=== PATIENT | female | born 1985 | race Caucasian/White ===

== ENCOUNTER 2016-07-18 20:20 | Emergency (ER) | payer OTHER ==
[2016-07-18] MEDS ORDERED: Sodium Chloride 0.9% 1000 ML 1,000 ML IV STA (20:54)
[2016-07-18] MEDS ORDERED: Sodium Chloride 0.9% 1000 ML 1,000 ML ONE (21:02)
[2016-07-18 21:07] LABS: BASOPHIL % 0.6 % (0.0-0.4); Eosinophil % 1.2 % (0.00-5.0); Granulocytes % 49.5 % (36.0-66.0); Lymphocytes % 36.3 % (24.0-44.0); Mean Cell Volume 92.3 fl (78-100); Mean Corpuscular Hemoglobin 31.4 pg (26-32); Mean Platelet Volume 9.1 fl (6-9.5); Monocytes % 12.4 % (0.0-12.0); Platelet Count 333 K/mm3 (150-450); Red Blood Count 4.42 M/mm3 (4.1-5.4); Red Cell Distribution Width 12.6 % (11.5-14.0); White Blood Count 4.9 K/mm3 (4.0-10.5)
--- NOTE | 2016-07-18 21:26 | ERPHSYRPT ---
- History of Present Illness Time Seen by Provider: 07/18/16 20:50 Source: patient Exam Limitations: no limitations Patient Subjective Stated Complaint: pt states she has been having shortness of breath and chest pain, worse with deep inhalation Triage Nursing Assessment: pt alert and oriented, answers questions approp. skin pink warm and dry. pt ambulatory with steady gait noted. resps nonlabored with lungs cta. pt reports increased pain with deep inhalation. Physician History: FOR THE PAST 4 DAYS PT HAS HAD A SORE THROAT AND RUNNY NOSE; SINCE YESTERDAY CHEST PAIN AND SHORTNESS OF AIR. Allergies/Adverse Reactions: No Known Drug Allergies Allergy (Verified 07/18/16 21:09) Hx Tetanus, Diphtheria Vaccination/Date Given: Yes Hx Influenza Vaccination/Date Given: No Hx Pneumococcal Vaccination/Date Given: No Immunizations Up to Date: Yes - Review of Systems Constitutional: No Fever Ears, Nose, & Throat: Nose Discharge, Throat Pain Respiratory: Dyspnea Cardiac: Chest Pain Endocrine: No Excessive Sweating All Other Systems: Reviewed and Negative - Past Medical History Pertinent Past Medical History: No Neurological History: No Pertinent History ENT History: No Pertinent History Cardiac History: No Pertinent History Respiratory History: No Pertinent History Endocrine Medical History: No Pertinent History Musculoskeletal History: No Pertinent History GI Medical History: No Pertinent History History: No Pertinent History Psycho-Social History: No Pertinent History Female Reproductive Disorders: No Pertinent History - Past Surgical History Past Surgical History: Yes Neuro Surgical History: No Pertinent History Cardiac: No Pertinent History Respiratory: No Pertinent History Gastrointestinal: Appendectomy, Cholecystectomy Genitourinary: No Pertinent History Musculoskeletal: No Pertinent History Female Surgical History: Tubal Ligation Other Surgical History: WEAK MUSCLE IN LEFT EYE THAT WAS REPAIRED - Social History Smoking Status: Never smoker Exposure to second hand smoke: Yes Drug Use: none Patient Lives Alone: Yes Significant Family History: no pertinent family hx - Female History Hx Last Menstrual Period: 07/04/16 Hx Now: No - Nursing Vital Signs Nursing Vital Signs: Initial Vital Signs Temperature 97.5 F Temperature Source Oral Pulse Rate 101 Respiratory Rate 16 Blood Pressure [Left Arm] 128/78 Pain Intensity 3 - Physical Exam General Appearance: alert Eye Exam: PERRL/EOMI, eyes nml inspection Ears, Nose, Throat Exam: TMs normal, moist mucous membranes, pharyngeal erythema Neck Exam: normal inspection Respiratory Exam: lungs clear Cardiovascular Exam: normal heart sounds Gastrointestinal/Abdomen Exam: soft, normal bowel sounds Back Exam: normal range of motion Extremity Exam: normal inspection, No pedal edema Neurologic Exam: alert, cooperative Skin Exam: warm, dry SpO2 Interpretation: normal SpO2: 98 Oxygen Delivery: Room Air - Course Nursing assessment & vital signs reviewed: Yes EKG Interpreted by Me: RATE (90), Sinus Rhythm, NORMAL AXIS, NORMAL INTERVALS Ordered Tests: Active Orders 24 hr Category Date Time Status EKG-ER Only STAT Care 07/18/16 20:54 Active IV Insertion STAT Care 07/18/16 20:54 Active Pulse Oximetry (ED) STAT Care 07/18/16 20:54 Active CHEST 2 VIEWS (PA AND LAT) Stat Exams 07/18/16 20:54 Taken AMYLASE Stat Lab 07/18/16 21:02 Completed CBC W DIFF Stat Lab 07/18/16 21:02 Completed CMP Stat Lab 07/18/16 21:02 Completed HCG QUALITATIVE,SERUM Stat Lab 07/18/16 21:02 Completed LIPASE Stat Lab 07/18/16 21:02 Completed MAGNESIUM Stat Lab 07/18/16 21:02 Completed TROPONIN Stat Lab 07/18/16 21:02 Completed Medication Summary Discontinued Medications Generic Name Dose Route Start Last Admin Trade Name Freq PRN Reason Stop Dose Admin Sodium Chloride 1,000 mls @ 999 mls/hr 07/18/16 20:54 07/18/16 21:03 Sodium Chloride 0.9% 1000 Ml IV 07/18/16 21:54 999 mls/hr .Q1H1M STA Administration Sodium Chloride Confirm 07/18/16 21:02 Sodium Chloride 0.9% 1000 Ml Administered 07/18/16 21:03 Dose 1,000 mls @ ud .ROUTE .STK-MED ONE Potassium Chloride 20 meq 07/18/16 22:55 Klor Con 10 Meq PO 07/18/16 22:56 STAT ONE Lab/Rad Data: Laboratory Result Diagrams 07/18/16 21:02 07/18/16 21:02 Laboratory Results 07/18/16 07/18/16 07/18/16 Range/Units 21:02 21:02 21:02 WBC (4.0-10.5) K/mm3 RBC (4.1-5.4) M/mm3 Hgb (12.0-16.0) gm/dl Hct (35-47) % MCV (78-100) fl MCH (26-32) pg MCHC (32-36) g/dl RDW (11.5-14.0) % Plt Count (150-450) K/mm3 MPV (6-9.5) fl Gran % (36.0-66.0) % Lymphocytes % (24.0-44.0) % Monocytes % (0.0-12.0) % Eosinophils % (0.00-5.0) % Basophils % (0.0-0.4) % Basophils # (0-0.4) Sodium 141 (136-145) mEq/L Potassium 3.3 L (3.5-5.1) mEq/L Chloride 103 (98-107) mEq/L Carbon Dioxide 25.4 (21-32) mEq/L Anion Gap 15.4 H (5-15) MEQ/L BUN 9 (9-20) mg/dL Creatinine 0.83 (0.55-1.30) mg/dl Estimated GFR > 60 ML/MIN Glucose 98 (70-110) MG/DL Calcium 9.0 (8.5-10.1) mg/dL Magnesium 2.0 (1.8-2.4) mg/dL Total Bilirubin 0.5 (0.2-1.0) mg/dL AST 12 L (15-37) U/L ALT 18 (12-78) U/L Alkaline Phosphatase 74 (46-116) U/L Troponin I < 0.017 (0.000-0.056) ng/ml Serum Total Protein 8.4 H (6.4-8.2) gm/dL Albumin 4.0 (3.4-5.0) g/dL Amylase 34 (25-115) U/L Lipase 85 (73-393) U/L Serum , Qual NEGATIVE (Negative) 07/18/16 Range/Units 21:02 WBC 4.9 (4.0-10.5) K/mm3 RBC 4.42 (4.1-5.4) M/mm3 Hgb 13.9 (12.0-16.0) gm/dl Hct 40.8 (35-47) % MCV 92.3 (78-100) fl MCH 31.4 (26-32) pg MCHC 34.1 (32-36) g/dl RDW 12.6 (11.5-14.0) % Plt Count 333 (150-450) K/mm3 MPV 9.1 (6-9.5) fl Gran % 49.5 (36.0-66.0) % Lymphocytes % 36.3 (24.0-44.0) % Monocytes % 12.4 H (0.0-12.0) % Eosinophils % 1.2 (0.00-5.0) % Basophils % 0.6 (0.0-0.4) % Basophils # 0.03 (0-0.4) Sodium (136-145) mEq/L Potassium (3.5-5.1) mEq/L Chloride (98-107) mEq/L Carbon Dioxide (21-32) mEq/L Anion Gap (5-15) MEQ/L BUN (9-20) mg/dL Creatinine (0.55-1.30) mg/dl Estimated GFR ML/MIN Glucose (70-110) MG/DL Calcium (8.5-10.1) mg/dL Magnesium (1.8-2.4) mg/dL Total Bilirubin (0.2-1.0) mg/dL AST (15-37) U/L ALT (12-78) U/L Alkaline Phosphatase (46-116) U/L Troponin I (0.000-0.056) ng/ml Serum Total Protein (6.4-8.2) gm/dL Albumin (3.4-5.0) g/dL Amylase (25-115) U/L Lipase (73-393) U/L Serum , Qual (Negative) - Departure Time of Disposition: 23:00 Departure Disposition: Home Clinical Impression: PHARYNGITIS, CHEST PAIN, HYPOKALEMIA Condition: Fair Critical Care Time: No Referrals: DOCTOR,NO FAMILY [Primary Care Provider] - Additional Instructions: FOLLOW UP WITH PRIVATE DOCTOR TOMORROW. Prescriptions: Naproxen [Naprosyn] 500 mg PO Q12H PRN PRN #20 tablet PRN Reason: Pain Azithromycin 250 mg [Zithromax 250 MG TABLET] 250 mg PO ZPACK #6 tablet
[2016-07-18 21:37] LABS: ALKALINE PHOSPHATASE 74 U/L (46-116); ANION GAP 15.4 MEQ/L (5-15); BILIRUBIN,TOTAL 0.5 mg/dL (0.2-1.0); BLOOD UREA NITROGEN 9 mg/dL (9-20); CHLORIDE 103 mEq/L (98-107); Carbon Dioxide 25.4 mEq/L (21-32); Glucose 98 MG/DL (70-110); LIPASE 85 U/L (73-393); Potassium 3.3 mEq/L (3.5-5.1); SGOT/AST 12 U/L (15-37); SGPT/ALT 18 U/L (12-78); SODIUM 141 mEq/L (136-145); Total Protein 8.4 gm/dL (6.4-8.2)
[2016-07-18] MEDS ORDERED: Klor Con 10 MEQ PO ONE ×2 (22:55→22:58)
[2016-07-18] MEDS ORDERED: ROCEPHIN 1 Gm-D5w 50 ml Bag** 50 ML IV ONE ×2 (22:58→23:00)
[2016-07-18 23:55] VITALS: PULSE 87; O2SAT 100
[2016-07-18 23:58] VITALS: BP 118/75
--- NOTE | 2016-07-19 08:51 | XRAY ---
Indication: Short of breath and congestion. Comparison: November 11, 2007. PA/lateral chest again demonstrates normal heart, lungs, and bony thorax with tiny calcified granulomas.
== END 2016-07-18 23:55 | disposition home or self-care (01) ==
LOC: ED 20:20
DX: J02.9 Acute pharyngitis, unspecified (principal); R07.9 Chest pain, unspecified; E87.6 Hypokalemia; R06.02 Shortness of breath; R09.89 Other specified symptoms and signs involving the circulatory and respiratory systems
CPT/HCPCS: 36000; 36415; 71020; 80053; 82150; 83690; 83735; 84484; 84703; 85025; 93005; 96360; 96365; 99285; J0696

== ENCOUNTER 2017-12-12 03:32 | Emergency (ER) | payer OTHER ==
[2017-12-12 03:58] VITALS: O2SAT 98
--- NOTE | 2017-12-12 04:09 | ERPHSYRPT ---
- History of Present Illness Time Seen by Provider: 12/12/17 04:00 Source: patient Exam Limitations: no limitations Patient Subjective Stated Complaint: pt states while she was walking down steps on saturday she heard a pop in her rt knee and has been having pain since. Triage Nursing Assessment: pt alert and oriented, answer qeustions approp. respirations nonlabored with lungs cta. pt ambulatory with slightly limping gait noted. pedal pulse and cap refill to [facility]. Physician History: Is a 32-year-old white female she arrives with complaint of pain in her right anterior medial knee symptoms since Saturday 2 days ago. According to patient she was walking down the stairs at home during her lunch when she felt a pop she is having pain in her right knee worse with movement. Past medical history patient denies. Past surgical history includes appendectomy, cholecystectomy, tubal ligation and eye surgery(muscle) Method of Injury: other (walking down stairs and felt a pop) Occurred: days ago (2 days ago) Quality: constant Lower Extremities Pain: knee: right Modifying Factors: Improves With: movement, other (walking) Associated Symptoms: popping sensation Allergies/Adverse Reactions: No Known Drug Allergies Allergy (Verified 12/12/17 03:59) Hx Tetanus, Diphtheria Vaccination/Date Given: Yes Hx Influenza Vaccination/Date Given: No Hx Pneumococcal Vaccination/Date Given: No Immunizations Up to Date: Yes - Review of Systems Constitutional: No Fever, No Chills Eyes: No Symptoms Ears, Nose, & Throat: No Symptoms Respiratory: No Cough, No Dyspnea Cardiac: No Chest Pain, No Edema, No Syncope Abdominal/Gastrointestinal: No Abdominal Pain, No Nausea, No Vomiting, No Diarrhea Genitourinary Symptoms: No Dysuria Musculoskeletal: Other (right knee pain) Skin: No Rash Neurological: No Dizziness, No Focal Weakness, No Sensory Changes Psychological: No Symptoms Endocrine: No Symptoms All Other Systems: Reviewed and Negative - Past Medical History Pertinent Past Medical History: No Neurological History: No Pertinent History ENT History: No Pertinent History Cardiac History: No Pertinent History Respiratory History: No Pertinent History Endocrine Medical History: No Pertinent History Musculoskeletal History: No Pertinent History GI Medical History: No Pertinent History History: No Pertinent History Psycho-Social History: No Pertinent History Female Reproductive Disorders: No Pertinent History - Past Surgical History Past Surgical History: Yes Neuro Surgical History: No Pertinent History Cardiac: No Pertinent History Respiratory: No Pertinent History Gastrointestinal: Appendectomy, Cholecystectomy Genitourinary: No Pertinent History Musculoskeletal: No Pertinent History Female Surgical History: Tubal Ligation Other Surgical History: WEAK MUSCLE IN LEFT EYE THAT WAS REPAIRED - Social History Smoking Status: Never smoker Exposure to second hand smoke: Yes Drug Use: none Patient Lives Alone: Yes Significant Family History: no pertinent family hx - Female History Hx Last Menstrual Period: 2 weeks ago Hx Now: No - Nursing Vital Signs Nursing Vital Signs: Initial Vital Signs Temperature 98.4 F 12/12/17 03:48 Pulse Rate 74 12/12/17 03:48 Respiratory Rate 18 12/12/17 03:48 Blood Pressure 133/81 12/12/17 03:48 O2 Sat by Pulse Oximetry 98 12/12/17 03:48 Pain Scale Pain Intensity 5 - Physical Exam General Appearance: mild distress Eyes, Ears, Nose, Throat Exam: moist mucous membranes Neck Exam: non-tender, supple Cardiovascular/Respiratory Exam: chest non-tender, normal breath sounds, regular rate/rhythm, no respiratory distress Gastrointestinal/Abdominal Exam: non-tender, guarding Back Exam: normal inspection, No vertebral tenderness Hips Exam: bilateral: non-tender, normal inspection, normal range of motion, no evidence of injury Legs Exam: bilateral leg: non-tender, normal inspection, normal range of motion , no evidence of injury Knees Exam: right knee: other (right knee tender with palpation anteriorly and medially decreased range of motion right knee secondary to pain), left knee: non -tender, normal inspection, normal range of motion Ankle Exam: bilateral ankle: non-tender, normal inspection, normal range of motion, no evidence of injury Foot Exam: bilateral foot: non-tender, normal inspection, normal range of motion , no evidence of injury DTR - Lower Extremities Exam: ankle (R): 2+, ankle (L): 2+ Neuro/Tendon Exam: normal sensation, normal motor functions Mental Status Exam: alert, oriented x 3, cooperative Skin Exam: other (sevFor severaleral small abrasions right leg) SpO2 Interpretation: normal (98%) SpO2: 98 Oxygen Delivery: Room Air - Course Nursing assessment & vital signs reviewed: Yes - Radiology Exams Right Knee X-ray Interpretation: Interpreted by me, Negative, No Fracture, No Subluxation Ordered Tests: Active Orders 24 hr Category Date Time Status Celestino Bandage Application -[facility] STAT Care 12/12/17 04:40 Active Immobilizer STAT Care 12/12/17 04:40 Active KNEE (3 VIEWS) Stat Exams 12/12/17 04:03 Ordered - Progress Progress: improved Progress Note: 12/12/17 04:09 This is a 32-year-old white female she arrives with complaint of pain in her right knee symptoms for 2 days she states she's felt a popping while walking down stairs at home. She has pain in the right anterior medial knee worse with movement. X-ray of the right knee has been ordered patient was offered Toradol injection she does not want this. 12/12/17 04:4 X-ray right knee no fracture or subluxation Will Celestino wrap and immobilizer to right knee Will prescribe Naprosyn, They did open the 12/12/17 04:47 Patient's right knee was reexamined after x-ray. Patient stable to anterior drawer, posterior drawer, medial collateral ligament stress, lateral collateral ligament stress. She had some mild medial joint line tenderness on the right knee. - Departure Time of Disposition: 04:42 Departure Disposition: Home Clinical Impression: Strain of right knee Qualifiers: Encounter type: initial encounter Qualified Code(s): S86.911A - Strain of unspecified muscle(s) and tendon(s) at lower leg level, right leg, initial encounter Condition: Fair Critical Care Time: No Referrals: DOCTOR,NO FAMILY [Primary Care Provider] - Instructions: Knee Sprain (DC) Additional Instructions: Return home. Ice and elevate your right knee 24-48 hours. Follow-up with your family symptoms are worse no better in 48 hours or persist longer than one week. Return for acute distress or for severe symptoms. Naprosyn as prescribed. Prescriptions: Naproxen 500 mg [Naprosyn 500 MG] 500 mg PO BID #20 tablet
[2017-12-12 04:52] VITALS: BP 122/81; PULSE 75
--- NOTE | 2017-12-12 09:16 | XRAY ---
Indication: Pain. Comparison: None 3 views of the right knee obtained. No bony, articular, or soft tissue abnormalities.
== END 2017-12-12 04:52 | disposition home or self-care (01) ==
LOC: ED 03:32
DX: S86.911A Strain of unspecified muscle(s) and tendon(s) at lower leg level, right leg, initial encounter (principal); X50.1XXA Overexertion from prolonged static or awkward postures, initial encounter; Y93.01 Activity, walking, marching and hiking; Y92.009 Unspecified place in unspecified non-institutional (private) residence as the place of occurrence of the external cause
CPT/HCPCS: 73562; 99284; L1830

== ENCOUNTER 2020-07-12 22:02 | Emergency (ER) | payer MEDICAID, OTHER ==
--- NOTE | 2020-07-12 22:35 | ERPHSYRPT ---
- History of Present Illness Source: patient, police Exam Limitations: other (Pt's hx somewhat evasive and refuses labs) Patient Subjective Stated Complaint: medical clearance for retirement Triage Nursing Assessment: pt arrived via Law Enforcement for medical clearance. Pt ambulated into ER, handcuffed. Pt was read her rights of the warrant for blood and search warrant, but pt refused, stating, "It's against my samaritan". Pt denies any pain and is sitting on the side of the bed crying. Physician History: 34 yo wf arrest by police for DUI. Pt alert and oriented x3 w good airway. She refuses all labs/UA and is somewhat evasive in Hx. Only complaint is B wrist pain due to handcuffs. Timing/Duration: other (Arrested before arrival) Modifying Factors: Improves With: nothing Associated Symptoms: denies symptoms Allergies/Adverse Reactions: No Known Drug Allergies Allergy (Verified 07/12/20 22:10) Home Medications: No Reportable Medications [No Reported Medications] 07/12/20 [History] Hx Tetanus, Diphtheria Vaccination/Date Given: No Hx Influenza Vaccination/Date Given: No Hx Pneumococcal Vaccination/Date Given: No Immunizations Up to Date: No Travel Risk - International Travel Have you traveled outside of the country in past 3 weeks: No - Coronavirus Screening Are you exhibiting any of the following symptoms?: No Close contact with a COVID-19 positive Pt in past 14-21 Days: No - Review of Systems Constitutional: No Symptoms Eyes: No Symptoms Ears, Nose, & Throat: No Symptoms Respiratory: No Symptoms Cardiac: No Symptoms Abdominal/Gastrointestinal: No Symptoms Genitourinary Symptoms: No Symptoms Musculoskeletal: Other (B wrist pain due to handcuffs whaich have been removed) Skin: No Symptoms Neurological: No Symptoms Psychological: No Symptoms Endocrine: No Symptoms Hematologic/Lymphatic: No Symptoms Immunological/Allergic: No Symptoms - Past Medical History Pertinent Past Medical History: No Neurological History: No Pertinent History ENT History: No Pertinent History Cardiac History: No Pertinent History Respiratory History: No Pertinent History Endocrine Medical History: No Pertinent History Musculoskeletal History: No Pertinent History GI Medical History: Gallbladder Disease, Other History: No Pertinent History Psycho-Social History: No Pertinent History Female Reproductive Disorders: No Pertinent History - Past Surgical History Past Surgical History: Yes Neuro Surgical History: No Pertinent History Cardiac: No Pertinent History Respiratory: No Pertinent History Gastrointestinal: Appendectomy, Cholecystectomy Genitourinary: No Pertinent History Musculoskeletal: No Pertinent History Female Surgical History: Tubal Ligation Other Surgical History: WEAK MUSCLE IN LEFT EYE THAT WAS REPAIRED - Social History Smoking Status: Never smoker Exposure to second hand smoke: Yes Drug Use: none Patient Lives Alone: No Significant Family History: no pertinent family hx - Female History Hx Now: No - Nursing Vital Signs Nursing Vital Signs: Initial Vital Signs Pulse Rate 104 H 07/12/20 22:44 Respiratory Rate 16 07/12/20 22:44 O2 Sat by Pulse Oximetry 100 07/12/20 22:44 Pain Scale Pain Intensity 0 - Physical Exam General Appearance: no apparent distress Eye Exam: PERRL/EOMI, eyes nml inspection Ears, Nose, Throat Exam: normal ENT inspection, TMs normal, pharynx normal, moist mucous membranes Neck Exam: normal inspection, non-tender, supple, full range of motion, No meningismus, No mass, No Brudzinski, No Kernig's, No carotid bruit Respiratory Exam: normal breath sounds, lungs clear, airway intact (Pt w great airway/Vocalizes wo difficulty/Handles secretions well), No respiratory distress Cardiovascular Exam: tachycardia (Mildly tachy) Gastrointestinal/Abdomen Exam: soft, normal bowel sounds, No tenderness Pelvic Exam: not done Rectal Exam: deferred Back Exam: normal inspection, normal range of motion, No CVA tenderness, No vertebral tenderness, No rash, No decreased range of motion, No muscle spasm Extremity Exam: other (Mild B wrist erythema wo edema, deformity,ecchymosis/GFood radial pulse, distal sensation, and capillary return) Neurologic Exam: alert, oriented x 3, cooperative (Cooperastive w PE but refuses labs/UA), intramural director II-XII nml as tested, normal mood/affect Skin Exam: normal color, warm, dry Lymphatic Exam: No adenopathy SpO2 Interpretation: normal O2 Delivery: Room Air - Course Nursing assessment & vital signs reviewed: Yes - Progress Progress Note: 07/12/20 22:38 Stable pt who has probably been drinking alcohol before driving. Pt refuses labs/UA but has a great airway. Counseled pt/family regarding: need for follow-up - Departure Departure Disposition: Senior Living/[facility] Clinical Impression: Medical clearance for incarceration Condition: Stable Critical Care Time: No Referrals: DOCTOR,NO FAMILY [Primary Care Provider] - Instructions: Alcohol Use - When Is Drinking a Problem? Additional Instructions: Follow up as needed
[2020-07-12 22:46] VITALS: PULSE 104; O2SAT 100
== END 2020-07-12 22:46 | disposition home or self-care (01) ==
LOC: ED 22:02
DX: Z02.89 Encounter for other administrative examinations (principal)
CPT/HCPCS: 99283